=== PATIENT | male | born 1935 | race Caucasian/White ===

== ENCOUNTER 2017-01-18 16:37 | Emergency (ER) | payer MEDICARE, OTHER ==
[~2017-01-18] VITALS: Ht 175.3 cm; Wt 82.0 kg
[~2017-01-18 16:37] MED LIST: ALPR0.5T PO; ASPI-1115 PO; AZEL137S11 NAS; CARV3.123 PO; GLUC1KIT INJ; GUAI400T65 PO; INSU100C5 SQ; INSU100V12 SQ; LOSA50TA52 PO; METF10002 PO; MOME17SP7 EA NOSTRIL; NITR0.4T SL; PHEN20SP2 PO; PROP10TA10 PO; TEST200V INJ; [UNRECOGNIZED DRUG - CODE] PO; [UNRECOGNIZED DRUG - OTHER] INJ
--- OUTSIDE RECORDS SUMMARY | 2017-01-18 16:42 | XMS REPORT | Continuity of Care Document ---
Author Author [facility] Organization [facility] Address Unknown Phone Unavailable Allergies Active Description Code Type Severity Reaction Onset Reported/Identified Relationship to Patient Clinical Status Yes PCN Drug Allergy N/A N/A Yes SULFA Drug Allergy N/A N/A Yes penicillin NKMA N/A [id number] 02/23/2014 Yes penicillin NKMA N/A [id number] 02/23/2014 Yes Thorazine Spansule NKMA N/A [id number] 02/27/2014 Yes sulfamethoxazole NKMA N/A N/A 02/27/2014 Yes Thorazine Spansule NKMA N/A [id number] 02/27/2014 Yes sulfamethoxazole NKMA N/A [id number] 01/27/2015 Yes sulfamethoxazole NKMA N/A [id number] 01/27/2015 Yes Bactroban NKMA Severe rash 03/08/2015 Yes Bactroban NKMA Severe rash 03/08/2015 Yes Glutens [id number] N/A N/A 10/12/2015 Yes Glutens egg- containing compound N/A N/A 10/12/2015 Medications Medication Packaging Start Date Stop Date Route Dosage Sig [id number] 05/09/2011 ORAL daily [id number] 06/23/2011 ORAL at bedtime [id number] 01/17/2012 ORAL twice daily [id number] 04/08/2012 ORAL weekly [id number] 10/08/2012 ORAL daily [id number] 10/07/2013 ORAL twice daily [id number] 10/16/2013 ORAL four times daily testosterone(Depo-Testosterone) 02/23/2014 11/09/2015 IntraMuscular 1 mL 1 mL, IntraMuscular, q2wk digoxin(Lanoxin 250 mcg (0.25 mg) oral tablet) 1 tabs 02/23/2014 02/08/2015 Oral 250 mcg 1 tabs, Oral, Daily insulin glulisine(Apidra) 02/23/2014 11/29/2015 See Instructions, 5 units with breakfast, 5 units with lunch and 6-13 with dinner SubCutaneous, 0 Refill(s) chlorpheniramine(chlorpheniramine) 02/23/2014 Oral 4 mg 4 mg , Oral, as needed not to exceed 6 doses/day mometasone nasal(Nasonex) 2 sprays 02/23/2014 02/09/2015 Nasal 2 sprays, Nasal, qAM propranolol(propranolol 10 mg oral tablet) 1 tabs 02/23/2014 Oral 10 mg 10 mg=1 tabs, Oral, BID, 0 Refill(s) calcium citrate(calcium citrate) 02/23/2014 05/24/2016 Oral Voided bismuth subsalicylate(Kaopectate) 02/23/2014 12/25/2014 Oral mg mg, Oral, QID, as needed nitroglycerin(Nitrostat 0.4 mg sublingual tablet) 1 tabs 02/23/2014 02/10/2016 SubLingual 0.4 mg 1 tabs, SubLingual, q5min, 100 tabs, PRN: as needed for chest pain glucose(glucose) 02/23/2014 Oral 4 g 4 g, Oral, as needed insulin detemir(Levemir 100 units/mL subcutaneous solution ) 07/21/2014 12/16/2015 See Instructions, 15 units SubCutaneous BID, 10 mL, 11 Refill(s) azelastine nasal(Astelin 137 mcg/inh nasal spray) 2 sprays 10/01/2014 10/15/2015 Nasal 2 sprays, Nasal, BID, 1 Each [id number] 10/05/2014 ORAL twice each day lutein(lutein) 12/25/2014 12/25/2014 Oral Oral, Daily chlorpheniramine(chlorpheniramine 4 mg oral tablet) 1 tabs 12/25/2014 01/01/2015 Oral 4 mg 1 tabs, Oral, QID, 40 tabs, PRN: as needed for allergy symptoms azithromycin(Zithromax Z-Wong 250 mg oral tablet) 01/04/2015 02/09/2015 See Instructions, as directed on package labeling, 6 tabs [id number] 01/18/2015 ORAL four times daily Sodium Chloride 0.9%(Sodium Chloride 0.9% 1,000 mL) 1,000 mL 01/27/2015 01/27/2015 IV 75 mL/hr, IV phenol topical(Chloraseptic Esposito 1.4% topical spray) sprays 01/27/2015 Oral sprays, Oral, As Indicated, PRN: as needed for sore throat, 0 Refill(s) ciprofloxacin(Cipro 500 mg oral tablet) 1 tabs 02/09/201502/19 Oral 500 mg 500 mg=1 tabs, Oral, q12hr, for 10 days, for sinusitis. take first dose tomorrow nmorning, February 10, 2015., 20 tabs, 0 Refill(s) ondansetron(Zofran ODT 4 mg oral tablet, disintegrating) 1 tabs 02/09/2015 02/19/2015 Oral 4 mg as needed for nausea/vomiting, allow tablet to dissolve on tongue, # 10 tabs, 1 Refill(s) 4 mg=1 tabs, Oral, q6hr, allow tablet to dissolve on tongue, PRN: Nausea or Vomiting as needed for nausea/ vomiting, 10 tabs, 1 Refill(s) oxyCODONE-acetaminophen(Percocet 5/325 oral tablet) 1 tabs 02/09/2015 02/19/2015 Oral 1 tabs, Oral, q6hr, PRN pain. No driving., 30 tabs, 0 Refill(s) mupirocin topical(Bactroban 2% topical ointment) 02/09/2015 03/08/2015 See Instructions, 1 kojo Topical qid., 22 g, 2 Refill(s) lisinopril(lisinopril 10 mg oral tablet) 1 tabs 03/08/2015 Oral 10 mg 10 mg=1 tabs, Oral, Daily, 30 tabs, 0 Refill(s) mometasone nasal(Nasonex 50 mcg/inh nasal spray) 2 sprays 03/08/2015 Nasal 2 sprays, Nasal, Daily, 0 Refill(s) ALPRAZolam(Xanax 0.5 mg oral tablet) 1 tabs 03/08/2015 Oral 0.5 mg 0.5 mg=1 tabs, Oral, TID, PRN: as needed for anxiety, 0 Refill(s) losartan(losartan 50 mg oral tablet) 1 tabs 04/16/20152015 Oral 50 mg Voided [id number] 04/30/2015 ORAL daily dicyclomine(Bentyl 10 mg oral capsule) 1 caps 10/11/20152015 Oral 10 mg Voided omeprazole(omeprazole 40 mg oral delayed release capsule) 1 caps 10/11/2015 02/10/2016 Oral 40 mg 40 mg=1 caps, Oral, Daily, 0 Refill(s) guaiFENesin(Mucinex) 10/11/2015 02/10/2016 Oral 600 mg 600 mg, Oral, q12hr, 0 Refill(s) pantoprazole(pantoprazole 40 mg oral delayed release tablet ) 1 tabs 10/11/2015 10/15/2015 Oral 40 mg 40 mg=1 tabs, Oral, Daily, 0 Refill(s) alendronate-cholecalciferol(Fosamax Plus D) 10/11/20152015 Voided Lactated Ringers Injection(Lactated Ringers Injection 1, 000 mL) 1,000 mL 201510/11/2015 IV 10 mL/hr, IV midazolam(Versed) 0.5 mL 10/11/2015 10/11/2015 IV Push 0.5 mg 0.5 mg=0.5 mL, IV Push, Once ondansetron(Zofran) 2 mL 10/11/2015 10/11/2015 IV Push 4 mg 4 mg= 2 mL, IV Push, Once, PRN: Nausea or Vomiting HYDROmorphone(Dilaudid) 0.5 mL 10/11/2015 10/11/2015 IV Push 0.5 mg 0.5 mg=0.5 mL, IV Push, q5min, PRN: Pain metoclopramide(Reglan) 2 mL 10/11/2015 10/15/2015 IV Push 10 mg 10 mg=2 mL, IV Push, q6hr, PRN: Nausea or Vomiting Lactated Ringers Injection(Lactated Ringers Injection 1, 000 mL) 1,000 mL 201510/13/2015 IV 100 mL/hr, IV ondansetron(Zofran) 2 mL 10/11/2015 10/15/2015 IV 4 mg 4 mg=2 mL, IV, q6hr, PRN: Nausea or Vomiting HYDROmorphone(HYDROmorphone EXTRACTIVE METALLURGIST 30 mg) 30 mL 10/11/20152015 IV 30 mg EXTRACTIVE METALLURGIST, IV, Stop: 12/10/15 19:49:00 CDT enoxaparin(Lovenox) 0.4 mL 10/11/2015 10/15/2015 SubCutaneous 40 mg 40 mg=0.4 mL, SubCutaneous, Daily HYDROmorphone(Dilaudid) 10/11/2015 10/15/2015 IV Push 0.5-1mg , IV Push, q2hr, PRN: Pain Severe (7-10) famotidine(Pepcid) 2 mL 10/11/2015 10/12/2015 IV 20 mg 20 mg=2 mL , IV, BID promethazine(Phenergan) 1 supp 10/11/2015 10/15/2015 Rectal 25 mg 25 mg=1 supp, Rectal, q6hr, PRN: Nausea or Vomiting acetaminophen(acetaminophen) 1 supp 10/11/2015 10/15/2015 Rectal 650 mg 650 mg=1 supp, Rectal, q6hr, PRN: Pain Mild (1-3) pneumococcal 23-polyvalent vaccine(pneumococcal 23- polyvalent vaccine) 0.5 mL 10/12/2015 10/12/2015 IntraMuscular 0.5 mL, IntraMuscular , As Indicated HYDROcodone-acetaminophen(Lortab Elixir 5 mg-216 mg/10 mL oral elixir range dose) 20 mL 10/12/2015 10/13/2015 Oral 20 mL, Oral, q4hr, PRN: Pain Moderate (4-6) ALPRAZolam(Xanax) 1 tabs 10/12/2015 10/15/2015 Oral 0.5 mg 0.5 mg=1 tabs, Oral, TID, PRN: Anxiety aspirin(aspirin) 4 tabs 10/12/2015 10/15/2015 Oral 324 mg 324 mg=4 tabs, Oral, Daily losartan(losartan) 1 tabs 10/12/2015 10/15/2015 Oral 50 mg 50 mg= 1 tabs, Oral, Daily pantoprazole(Protonix) 1 tabs 10/12/2015 10/15/2015 Oral 40 mg 40 mg=1 tabs, Oral, Daily insulin detemir(Levemir) 0.12 mL 10/12/2015 10/15/2015 SubCutaneous 12 units 12 units=0.12 mL, SubCutaneous, BID adenosine(adenosine) 4 mL 10/12/2015 10/12/2015 IV Push 12 mg 12 mg=4 mL, IV Push, Once diltiazem(Cardizem) 3 mL 10/12/2015 10/12/2015 IV Push 15 mg 15 mg =3 mL, IV Push, Once docusate(Colace) 1 caps 10/13/2015 10/15/2015 Oral 100 mg 100 mg=1 caps, Oral, BID polyethylene glycol 3350(MiraLax) 1 packets 10/13/20152015 Oral 17 g 17 g=1 packets, Oral, Daily HYDROcodone-acetaminophen(HYDROcodone-acetaminophen 5 mg- 325 mg oral tablet) 1 tabs 10/13/2015 10/13/2015 Oral 1 tabs, Oral, Once, PRN: Pain Moderate (4-6) HYDROcodone-acetaminophen(HYDROcodone-acetaminophen 5 mg- 216 mg/10 mL oral liquid range dose) 20 mL 10/13/2015 10/14/2015 Oral 20 mL, Oral, q4hr, PRN: Pain Moderate (4-6) insulin aspart(NovoLOG) 0.16 mL 10/14/2015 10/15/2015 SubCutaneous 16 units 16 units=0.16 mL, SubCutaneous, TIDWM oxyCODONE(Roxicodone) 10/14/2015 10/15/2015 Oral 5-10mg, Oral , q4hr, PRN: Pain Severe (7-10) acetaminophen(acetaminophen) 20.3 mL 10/14/2015 10/15/2015 Oral 650 mg 650 mg=20.3 mL, Oral, q6hr, PRN: Pain Mild (1-3) metoprolol(metoprolol tartrate 25 mg oral tablet) 1 tabs 10/14/2015 10/14/2015 Oral 25 mg 25 mg=1 tabs, Oral, BID fluticasone nasal(fluticasone 50 mcg/inh nasal spray) 2 sprays 10/14/2015 10/15/2015 Nasal 100 mcg 100 mcg=2 sprays, Nasal, Daily polyethylene glycol 3350(MiraLax) 1 packets 10/15/20152015 Oral 17 g 17 g=1 packets, Oral, Daily, 0 Refill(s) acetaminophen(acetaminophen 650 mg oral granule, effervescent) 201505/24/2016 Oral Voided oxyCODONE(Roxicodone) 10/15/2015 12/07/2015 Oral 5-10mg, Oral , q4hr, PRN: Pain Severe (7-10), 0 Refill(s) docusate(Colace 100 mg oral capsule) 1 caps 10/15/20152015 Oral 100 mg Voided magnesium sulfate(magnesium sulfate) 100 mL 10/15/20152015 IV Piggyback 1 g 1 g=100 mL, 100 mL/hr, IV Piggyback, Once magnesium oxide(magnesium oxide) 1 tabs 10/15/2015 10/15/2015 Oral 400 mg 400 mg=1 tabs, Oral, Once chlorpheniramine(chlorpheniramine 4 mg oral tablet) 1 tabs 11/09/2015 02/10/2016 Oral 4 mg 4 mg=1 tabs, Oral, QID, PRN: as needed for allergy symptoms, 40 tabs, 0 Refill(s) aspirin(aspirin 325 mg oral tablet) 1 tabs 11/09/2015 Oral 325 mg 325 mg=1 tabs, Oral, Daily, 0 Refill(s) dicyclomine(Bentyl) 12/07/2015 05/24/2016 mg Voided metFORMIN(metFORMIN 1000 mg oral tablet, extended release) 1 tabs 12/07/2015 Oral 1,000 mg 1,000 mg=1 tabs, Oral, BID, 120 tabs, 0 Refill(s) carvedilol(carvedilol) 12/07/2015 Oral 3.125 mg 3.125 mg, Oral, BID, 0 Refill(s) guaiFENesin(guaiFENesin 400 mg oral tablet) 1 tabs 02/10/2016 02/09/2017 Oral 400 mg 400 mg=1 tabs, Oral, q4hr, PRN: as needed for congestion, 30 tabs, 0 Refill(s) cetirizine(ZyrTEC 10 mg oral tablet) 1 tabs 02/10/20162015 Oral 10 mg Voided losartan(losartan 25 mg oral tablet) 1 tabs 05/24/20162016 Oral 25 mg Voided testosterone(Depo-Testosterone) 05/24/2016 See Instructions, IntraMuscular q4wk, 0 Refill(s) insulin glulisine(Apidra SoloStar Pen 100 units/mL subcutaneous solution) 05/24/2016 09/07/2016 See Instructions, 6 units with breakfast, 5 units with lunch and 7 with dinner SubCutaneous, 30 mL, 11 Refill( s) insulin detemir(Levemir FlexTouch 100 units/mL subcutaneous solution) 05/24/2016 09/07/2016 See Instructions, INJECT 15 UNITS IN THE A.M., AND 17 UNITS IN THE P.M. SUB-Q DAILY, 30 mL, 11 Refill(s) Lactated Ringers Injection(Lactated Ringers 1,000 mL) 1,000 mL 06/26/2016 06/26/2016 IV 10 mL/hr, IV losartan(losartan 100 mg oral tablet) 1 tabs 09/29/2016 Oral 100 mg 100 mg=1 tabs, Oral, Daily, 30 tabs, 0 Refill(s) Problems Date Dx Coded Attending Type Code Diagnosis Diagnosed By 10/14/2015 Yoselin Ward Final K56.2 Volvulus 10/14/2015 Yoselin Ward Reason R13.10 Dysphagia, unspecified 10/19/2015 Moy Shah MD Final E11.9 Type 2 diabetes mellitus without complications 10/19/2015 Moy Shah MD Final I10 Essential (primary) hypertension 10/19/2015 Moy Shah MD Final 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 10/19/2015 Moy Shah MD Final I65.22 Occlusion and stenosis of left carotid artery 10/19/2015 Moy hSah MD Final K44.9 Diaphragmatic hernia without obstruction or gangrene 10/19/2015 Moy Shah MD Reason R47.01 Aphasia 10/19/2015 Moy Shah MD Final Z01.810 Encounter for preprocedural cardiovascular examination 10/19/2015 Moy Shah MD Final Z95.1 Presence of aortocoronary bypass graft 11/01/2015 Moy Shah MD Final E11.9 Type 2 diabetes mellitus without complications 11/01/2015 Moy Shah MD Final E83.42 Hypomagnesemia 11/01/2015 Moy Shah MD Final F41.0 Panic disorder [episodic paroxysmal anxiety] without agoraphobia 11/01/2015 Moy Shah MD Final G25.0 Essential tremor 11/01/2015 Moy Shah MD Final I10 Essential (primary) hypertension 11/01/2015 Moy Shah MD Final 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 11/01/2015 Moy Shah MD Final I34.0 Nonrheumatic mitral (valve) insufficiency 11/01/2015 Moy Shah MD Final I47.1 Supraventricular tachycardia 11/01/2015 Moy Shah MD Final K31.89 Other diseases of stomach and duodenum 11/01/2015 Moy Shah MD Admitting K44.9 Diaphragmatic hernia without obstruction or gangrene 11/01/2015 Moy Shah MD Final Z23 Encounter for immunization 11/01/2015 Moy Shah MD Final Z95.1 Presence of aortocoronary bypass graft 11/01/2015 Moy Shah MD Final K44.9 Diaphragmatic hernia without obstruction or gangrene 07/02/2016 Yoselin Ward Final D75.1 Secondary polycythemia 07/02/2016 Yoselin Ward Final E11.42 Type 2 diabetes mellitus with diabetic polyneuropathy 07/02/2016 Yoselin Ward Final E78.5 Hyperlipidemia, unspecified 07/02/2016 Yoselin Ward Final F32.9 Major depressive disorder, single episode, unspecified 07/02/2016 Yoselin Ward Final F41.9 Anxiety disorder, unspecified 07/02/2016 Yoselin Ward Final G25.0 Essential tremor 07/02/2016 Yoselin Ward Final I10 Essential (primary) hypertension 07/02/2016 Yoselin Ward Final 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 07/02/2016 Yoselin Ward Final I25.2 Old myocardial infarction 07/02/2016 Yoselin Ward Final I48.91 Unspecified atrial fibrillation 07/02/2016 Yoselin Ward Final J98.6 Disorders of diaphragm 07/02/2016 Yoselin Ward Final K21.9 Gastro-esophageal reflux disease without esophagitis 07/02/2016 Yoselin Ward Final K22.8 Other specified diseases of esophagus 07/02/2016 Yoselin Ward Final K29.00 Acute gastritis without bleeding 07/02/2016 Yoselin Ward Final K90.0 Celiac disease 07/02/2016 Yoselin Ward Final M19.90 Unspecified osteoarthritis, unspecified site 07/02/2016 Yoselin Ward Final N40.0 Benign prostatic hyperplasia without lower urinary tract symptoms 07/02/2016 Yoselin Ward Reason R13.10 Dysphagia, unspecified 07/02/2016 Yoselin Ward Final 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 Visit Date/Time Discharge Status Pt. Type Provider Facility Loc./Unit Complaint [id number] 06/26/2016 07:42:00 2015 11:25:00 DIS Outpatient Yoselin Ward [facility] SPS GERD, dysphagia, Celiac disease [id number] 10/11/2015 12:08:00 2015 14:24:00 DIS Inpatient Moy Shah MD [facility] [id number] Diaphragmatic hernia [id number] 09/24/2015 13:05:00 2015 23:59:00 DIS Outpatient Yoselin Ward [facility] on [facility] Diag Rad DYSPHAGIA [id number] 09/30/2016 05:16:29 Document Registration [id number] 06/27/2016 05:18:12 Document Registration [id number] 05/25/2016 05:17:42 Document Registration [id number] 02/11/2016 05:16:43 Document Registration [id number] 12/08/2015 05:17:46 Document Registration [id number] 11/10/2015 05:15:50 Document Registration [id number] 10/16/2015 05:16:40 Document Registration [id number] 10/15/2015 05:16:05 Document Registration [id number] 10/14/2015 05:16:42 Document Registration [id number] 10/13/2015 05:17:35 Document Registration [id number] 10/12/2015 05:17:12 Document Registration [id number] 10/07/2015 09:15:00 ACT Outpatient Moy Shah MD [facility] on [facility] Non-Invas r42 [id number] 06/23/2015 13:28:05 Document Registration [id number] 06/23/2015 12:58:31 Document Registration [id number] 06/23/2015 12:36:28 Document Registration [id number] 06/23/2015 12:29:14 Document Registration [id number] 06/23/2015 12:22:02 Document Registration [id number] 06/23/2015 12:08:10 Document Registration [id number] 06/23/2015 12:01:32 Document Registration [id number] 06/23/2015 11:02:19 Document Registration [id number] 06/23/2015 10:22:00 Document Registration [id number] 06/23/2015 09:04:20 Document Registration
[2017-01-18 16:43] VITALS: TEMP 98.1; Ht 175.3 cm; Wt 82.0 kg
--- OUTSIDE RECORDS SUMMARY | 2017-01-18 16:43 | XMS REPORT | Referral Summary ---
Author Author [facility] Organization [facility], Melissa Address Unknown Phone Unavailable Care Team Providers Care Social Media Developer Name Role Phone Mike Mendoza Primary Care Physician [phone] Encounter VC Date(s): 05/24/16 - 05/24/16 [facility] [address] [place] [address] [facility] Discharge Diagnosis: Diabetic neuropathy Discharge Diagnosis: Type 2 diabetes mellitus, controlled Discharge Diagnosis: Hypertension Discharge Diagnosis: Long-term insulin use Discharge Disposition: 01-Home or Self Care Attending Physician: Melida Millan APRN Admitting Physician: Melida Millan APRN Vital Signs Most recent to 1 oldest [Reference Range]: Peripheral Pulse 84 bpm Rate [60-100 bpm] (05/24/16 1:29 PM) Blood Pressure 120/80 mmHg [90-140/60-90 mmHg] (05/24/16 1:29 PM) Problem List Condition Effective Dates Status Health Status Informant Acute Active pain(Confirmed) At risk for activity Active intolerance(Confirme d)1 At risk of pressure Active sore(Confirmed) Celiac Active disease(Confirmed) Celiac Active disease(Confirmed) Depression(Confirmed Active patient ) Diabetes(Confirmed) Active Peripheral Active neuropathy(Confirmed ) Dyslipidemia(Confirm Active patient ed) Breath Active shortness(Confirmed) Polycythemia(Confirm Active patient ed) Essential Active tremor(Confirmed) Hiatal Active patient hernia(Confirmed) Hypertension(Confirm Active ed) Impaired skin Active integrity(Confirmed) 2 Osteoporosis(Confirm Active patient ed) Diaphragmatic Active paralysis(Confirmed) Diabetic Active neuropathy(Confirmed ) Tobacco Active patient user(Confirmed) Type 2 diabetes Active mellitus, controlled(Confirmed ) Uncontrolled type 2 Active diabetes mellitus(Confirmed) 1Problem added automatically by system based on initiation of At Risk for Activity Intolerance Plan of Care 2Problem added automatically by system based on initiation of Impaired Skin Integrity Plan of Care Allergies, Adverse Reactions, Alerts Substance Reaction Severity Status Bactroban rash Severe Active Glutens1 Active penicillin Rash Active sulfamethoxazole Rash Active Thorazine Spansule Hives Active 1Celiac Disease Medications Apidra SoloStar Pen 100 units/mL subcutaneous solution See Instructions, 6 units with breakfast, 5 units with lunch and 6 with dinner SubCutaneous, # 30 mL, 11 Refill(s), [facility]: [facility], 6 units with breakfast, 5 units with lunch and 6 with dinner SubCutaneous Start Date: 05/24/16 Status: Ordered aspirin 325 mg oral tablet 325 mg 1 tabs, Oral, Daily, 0 Refill(s) Start Date: 11/09/15 Status: Ordered carvedilol Oral, 0 Refill(s) Start Date: 12/07/15 Status: Ordered Chloraseptic [place] 1.4% topical spray sprays, Oral, As Indicated, as needed for sore throat, 0 Refill(s) Start Date: 01/27/15 Status: Ordered chlorpheniramine 4 mg, Oral, as needed not to exceed 6 doses/day, 0 Refill(s) Start Date: 02/23/14 Status: Ordered Depo-Testosterone See Instructions, IntraMuscular q4wk, 0 Refill(s) Start Date: 05/24/16 Status: Ordered glucose 4 g, Oral, as needed, 0 Refill(s) Start Date: 02/23/14 Status: Ordered guaiFENesin 400 mg oral tablet 400 mg 1 tabs, Oral, q4hr, as needed for congestion, # 30 tabs, 0 Refill(s) Start Date: 02/10/16 Stop Date: 02/09/17 Status: Ordered Insulin [place] (DME) DME Item Insulin pen needles 8mm use to inject insulin 5 times daily, See Instructions, # 3 boxes, 11 Refill(s), [facility]: [facility], Insulin pen needles 8mm; use to inject insulin 5 times daily, Supply Start Date: 05/24/16 Status: Ordered Levemir FlexTouch 100 units/mL subcutaneous solution See Instructions, INJECT 15 UNITS TWICE A DAY., # 30 mL, 11 Refill(s), CASANDRA, [facility]: [facility], INJECT 15 UNITS TWICE A DAY. Start Date: 05/24/16 Status: Ordered losartan 25 mg oral tablet 25 mg 1 tabs, Oral, Daily, 0 Refill(s) Start Date: 05/24/16 Status: Ordered metFORMIN 1000 mg oral tablet, extended release 1,000 mg 1 tabs, Oral, BID, # 120 tabs, 0 Refill(s) Start Date: 12/07/15 Status: Ordered Misc Medication See Instructions, Rubralam pc INj B12 1000mcg every 2nd week, 0 Refill(s) Start Date: 02/27/14 Status: Ordered Nasonex 50 mcg/inh nasal spray 2 sprays, Nasal, Daily, 0 Refill(s) Start Date: 03/08/15 Status: Ordered propranolol 10 mg oral tablet 10 mg 1 tabs, Oral, BID, 0 Refill(s) Start Date: 02/23/14 Status: Ordered Xanax 0.5 mg oral tablet 0.5 mg 1 tabs, Oral, TID, as needed for anxiety, 0 Refill(s) Start Date: 03/08/15 Status: Ordered Results No data available for this section Immunizations Vaccine Date Refusal Reason pneumococcal 23-polyvalent vaccine 10/12/15 Procedures Procedure Date Related Diagnosis Body Site Repair Hernia Hiatal Laparoscopic1 10/11/15 Nasal/sinus endoscopy, surgical with frontal 02/09/15 sinus exploration, with or without removal of tissue from frontal sinus Nasal/sinus endoscopy, surgical, with 02/09/15 maxillary antrostomy; with removal of tissue from maxillary sinus Nasal/sinus endoscopy, surgical; with 02/09/15 ethmoidectomy, total (anterior and posterior) CABG x 3 - Coronary artery bypass grafts x 3 History of placement of stent for coronary artery disease neck fusion 1auto-populated from documented surgical case Social History Social History Type Response Smoking Status Former smoker; Type: Cigarettes; Tobacco use per day: More than 1 pack; Number of years: 25; Total pack years: 100 Assessment and Plan Extracted from: Title: Office Visit Note Author: Melida Millan APRN Date: 05/24/16 Assessment/Plan 1.Type 2 diabetes mellitus, controlled 1. check blood sugars fasting and 2 hours after meals 3-7 days per week 2. continue current doses of insulin and metformin 3. rotate injection sites 4. monitor diet and exercise 5. monitor feet daily 6. send weekly blood sugars to office I discussed the patient with the preceptor. Ordered: Hemoglobin A1c Office Visit Level 3 Est 53251 Return to Clinic 2.Diabetic neuropathy Ordered: Hemoglobin A1c Office Visit Level 3 Est [id number] Return to Clinic 3.Hypertension Ordered: Hemoglobin A1c Office Visit Level 3 Est [id number] Return to Clinic 4.Long-term insulin use Ordered: Hemoglobin A1c Office Visit Level 3 Est [id number] Return to Clinic Extracted from: Title: Ambulatory Patient Education Author: Melida Millan APRN Date: Obstetrics and Gynecology Diabetes and Sick Day Management Blood sugar (glucose) can be more difficult to control when you are sick. Colds , fever, flu, nausea, vomiting, and diarrhea are all examples of common illnesses that can cause problems for people with diabetes. Loss of body fluids (dehydration) from fever, vomiting, diarrhea, infection, and the stress of a sickness can all cause blood glucose levels to increase. Because of this, it is very important to take your diabetes medicines and to eat some form of carbohydrate food when you are sick. Liquid or soft foods are often tolerated, and they help to replace fluids. HOME CARE INSTRUCTIONS These main guidelines are intended for managing a short-term (24 hours or less) sickness: Take your usual dose of insulin or oral diabetes medicine. An exception would be if you take any form of metformin. If you cannot eat or drink, you can become dehydrated and should not take this medicine. Continue to take your insulin even if you are unable to eat solid foods or are vomiting. Your insulin dose may stay the same, or it may need to be increased when you are sick. You will need to test your blood glucose more often, generally every 2 4 hours. If you have type 1 diabetes, test your urine for ketones every 4 hours. If you have type 2 diabetes, test your urine for ketones as directed by your health care provider. Eat some form of food that contains carbohydrates. The carbohydrates can be in solid or liquid form. You should eat 4550 g of carbohydrates every 3 4 hours. Replace fluids if you have a fever, vomit, or have diarrhea. Ask your health care provider for specific rehydration instructions. Watch carefully for the signs of ketoacidosis if you have type 1 diabetes. Call your health care provider if any of the following symptoms are present, especially in children: Moderate to large ketones in the urine along with a high blood glucose level. Severe nausea. Vomiting. Diarrhea. Abdominal pain. Rapid breathing. Drink extra liquids that do not contain sugar such as water. Be careful with [id number] medicines. Read the labels. They may contain sugar or types of sugars that can increase your blood glucose level. Food Choices for Illness All of the food choices below contain about 15 g of carbohydrates. Plan ahead and keep some of these foods around. to cup carbonated beverage containing sugar. Carbonated beverages will usually be better tolerated if they are opened and left at room temperature for a few minutes. of a twin frozen ice pop. cup regular gelatin. cup juice. cup ice cream or frozen yogurt. cup cooked cereal. cup sherbet. 1 cup clear broth or soup. 1 cup cream soup. cup regular custard. cup regular pudding. 1 cup sports drink. 1 cup plain yogurt. 1 slice toast. 6 squares saltine crackers. 5 vanilla wafers. SEEK MEDICAL CARE IF: You are unable to drink fluids, even small amounts. You have nausea and vomiting for more than 6 hours. You have diarrhea for more than 6 hours. Your blood glucose level is more than 240 mg/dL, even with additional insulin. There is a change in mental status. You develop an additional serious sickness. You have been sick for 2 days and are not getting better. You have a fever. SEEK IMMEDIATE MEDICAL CARE IF: You have difficulty breathing. You have moderate to large ketone levels. MAKE SURE YOU: Understand these instructions. Will watch your condition. Will get help right away if you are not doing well or get worse. This information is not intended to replace advice given to you by your health care provider. Make sure you discuss any questions you have with your health care provider. Document Released: 08/22/2004 Document Revised: 09/10/2015 Document Reviewed: ExitCare Patient Information 2016 [employer], [employer]. No follow up information was provided. Referrals to Other Providers Referred by: Melida Millan APRN
--- OUTSIDE RECORDS SUMMARY | 2017-01-18 16:43 | XMS REPORT | Continuity of Care Document ---
Author Author [facility] Organization [facility] Address Unknown Phone Unavailable Support Name Relationship Address Phone JANUARY, MADELEINE Mckeon DO Caregiver [address] [place] [address] Unavailable EMILY VERA Caregiver [address] [place] [address] Unavailable DIDIERSYLVESTERUSAMA Next Of Kin [address], [place] [address] Insurance Providers Guarantor Jonh Velásquez Address [address] [place] [address] Email DENIED/NO TO PT PORT Payer [employer] Medicare Supplement Policy Number [id number] Subscriber's Name Jonh Velásquez Relationship 18 Self Group Number [id number] Effective Date 14 Payer Medicare Policy Number [id number] Subscriber's Name Jonh Velásquez Relationship 18 Self Effective Date 02 Chief Complaint and Reason for Visit Chief Complaint Laceration Reason for Visit [id number] Problems Active Problems Medical Problem Onset Date Status Chest pain, rule out acute myocardial infarction Unknown Acute Coronary arteriosclerosis after coronary artery bypass grafting Unknown Chronic Coronary arteriosclerosis after percutaneous transluminal coronary angioplasty (PTCA) Unknown Chronic Drooling Unknown Acute Hypoglycemia Unknown Acute Sinusitis Unknown Acute Sinusitis Unknown Acute Speech abnormality Unknown Acute TIA (transient ischemic attack) Unknown Acute Surgical Problem Onset Date Status S/P coronary artery balloon dilation Unknown Acute Past Problems Medical Problem Onset Date Dizziness Unknown Finger laceration Unknown Headache Unknown Medications Current Home Medications Medication Dose Units Route Directions Days Qty Instructions Start Date Alprazolam (Xanax) 0.5 Mg Tablet 0.5 Mg Oral Three Times A Day as needed for Anxiety 08/31/14 Aspirin (Ecotrin) 325 Mg Tablet. 325 Mg Oral Daily 12/28/15 Azelastine Hcl 137 Mcg/0.137 Ml [place].pump 2 [place] Intranasal Twice A Day as needed for Prn Orders BID PRN 12/28/15 Carvedilol 3.125 Mg Tablet 3.125 Mg Oral Twice Daily With Meals 11/22/15 Chlorpheniramine Maleate (Chlor-Tablet) 4 Mg Tablet 4 Mg Oral As Needed for Allery Symptoms 02/17/11 Glucagon,Human Recombinant (Glucagon Emergency Kit) 1 Mg/Kit Syringe 1 Dose Injection As Needed 09/17/15 Guaifenesin 400 Mg Tablet 400 Mg Oral Bedtime as needed for Allery Symptoms 09/17/15 Insulin Detemir (Levemir) 100 Unit/Ml Inj 15 Unit Sub-Q Twice A Day 08/31/14 Insulin Glulisine (Apidra) 100 U/Ml Cartridge 5-8 Unit Sub-Q Three Times Daily With Meals 6 units before breakfast; 5 units before lunch (0 units if going to cardiac rehab); 6 units before supper 05/04/10 Losartan Potassium 50 Mg Tablet 25 Mg Oral Daily 01/24/16 Metformin Hcl 1,000 Mg Tablet 1,000 Mg Oral Twice A Day 12/28/15 Mometasone Furoate (Nasonex) 17 Gm [place] 2 [place] Each Nostril Bedtime 02/17/11 Nitroglycerin (Nitrostat) 0.4 Mg Tablet 0.4 Mg Sublingual Every 5 Minutes as needed for Chest Tightness 07/11/15 Phenol (Chloraseptic) 20 Ml [place] 1 [place] Oral As Needed 09/17/15 Propranolol Hcl 10 Mg Tablet 10 Mg Oral Twice A Day 12/31/15 Rubralam 1,000 Mcg Injection Q2w 05/26/16 Testosterone Cypionate (Depo-Testosterone) 200 Mg/Ml Vial 1 Ml Injection Q4w 04/14/16 Past Home Medications Medication Directions Ordered Status Aspirin (Ecotrin) 325 Mg Tablet.dr, 325 Mg Oral Daily 05/04/10 Discontinued Azithromycin 250 Mg Tablet, 2 Tab Oral Daily 08/31/14 Discontinued Azithromycin 250 Mg Tablet, 2 Tab Oral Daily 08/31/14 Discontinued Ca Cmb No.1/Vit D3/B-6/Fa/B12 (Vitamin D3 1,000 Unit Tablet) 1 Each Tablet, 20302 Unit Oral Daily 08/31/14 Discontinued Ciprofloxacin Hcl (Cipro) 250 Mg Tablet, 250 Mg Oral Bedtime 08/31/14 Discontinued Digoxin (Lanoxin) 250 Mcg Tablet, 250 Mcg Oral Daily 05/04/10 Discontinued Escitalopram Oxalate (Lexapro) 5 Mg Tablet, 5 Mg Oral Daily 05/04/10 Discontinued Guaifenesin (Mucinex) 600 Mg Tablet.sa, 600 Mg Oral Twice A Day 11/18/10 Discontinued Lactobacillus Acidophilus (Acidophilus Probiotic) 1 Mg Tablet, 1 Tab Oral Daily 08/31/14 Discontinued Melatonin/Pyridoxine (Melatonin 3 Mg Tablet) 1 Tab Tablet, 1 Tab Oral Bedtime 02/17/11 Discontinued Metformin Hcl 1,000 Mg Tablet, 1000 Tab Oral Twice Daily With Meals 07/11/15 Discontinued Metformin Hcl 500 Mg Tablet, 1000 Mg Oral Twice A Day 05/04/10 Discontinued Metoprolol Succinate 50 Mg Tab.sr.24h, 50 Mg Oral Daily 05/04/10 Discontinued Mometasone Furoate (Nasonex) 17 Gm [place], 17 Gm Nasal As Needed 05/04/10 Discontinued Prednisone 20 Mg Tablet, 60 Mg Oral Give With Breakfast 08/31/14 Discontinued Propranolol Hcl 10 Mg Tablet, 10 Mg Oral Four Times Daily 07/12/15 Discontinued Social History Social History Problem Response Recorded Date/Time Onset Date Status Hx Substance Use No 05/26/2016 2:30pm Not Applicable Not Applicable Hx Alcohol Use No 05/26/2016 2:30pm Not Applicable Not Applicable Has the pt used tobacco in the last 12 months No 11/22/2015 11:04am Not Applicable Not Applicable Tobacco Usage none 09/01/2014 7:23am Not Applicable Not Applicable Query Response Start Date Stop Date Smoking Status Unknown if ever smoked Hospital Discharge Instructions No hospital discharge instructions. Plan of Care Discharge Date 05/26/16 2:55pm Disposition 01 DISCHARGED HOME, SELF-CARE Condition at Discharge Stable Instructions/Education Provided DI for Laceration Repair -- Finger Prescriptions See Medication Section Referrals EMILY VERA Address: [address] [address] Additional Instructions/Education Have sutures removed in the next 10-14 days with your primary care provider. Wash daily with soap and water. I do recommend that if you should have any further issues/concerns then please follow up with your primary care provider. Tylenol and/or Ibuprofen as needed for pain. Care Plan and Goals Physician Care Plan Problem:Finger Laceration Goal: Follow up with primary care provider Instructions: Take medications and follow care plan as discussed/written Functional Status No functional status results. Allergies, Adverse Reactions, Alerts Allergen Type Severity Reaction Status Last Updated Penicillin Allergy Severe RASH Active 05/26/16 Sulfa (Sulfonamide Antibiotics) Allergy Severe RASH Active 05/26/16 Isosorbide Allergy Unknown Active 05/26/16 Senna concentrate Allergy Unknown Active 05/26/16 Lorazepam Allergy Unknown Active 05/26/16 Primidone Allergy Unknown Active 05/26/16 Hydrocortisone Allergy Unknown Active 05/26/16 Ampicillin Allergy Unknown Active 05/26/16 Neomycin Allergy Unknown Active 05/26/16 Bacitracin Allergy Unknown Active 05/26/16 Sulfamethoxazole Allergy Severe RASH Active 05/26/16 Trimethoprim Allergy Severe RASH Active 05/26/16 Pravastatin Allergy Unknown Active 05/26/16 Amoxicillin Allergy Severe RASH Active 05/26/16 Venlafaxine Allergy Unknown Active 05/26/16 Lansoprazole Allergy Unknown Active 05/26/16 Chlorpromazine Allergy Unknown HIVES Active 05/26/16 Amitriptyline Allergy Unknown Active 05/26/16 Bupropion Allergy Unknown Active 05/26/16 Sertraline Allergy Unknown Active 05/26/16 Ceftriaxone Allergy Unknown Active 05/26/16 Polymyxin b Allergy Unknown Active 05/26/16 Pantoprazole Allergy Unknown Active 05/26/16 Escitalopram Allergy Unknown Active 05/26/16 Rosuvastatin Allergy Unknown Active 05/26/16 Immunizations Immunization Event Date Type Not Given Reason Dose Number Lot Number [employer] VIS Given Td (adult), adsorbed 05/26/16 Administered 1 [id number] [employer] 10/27/14 Query Response on File Recorded Date/Time Hx Influenza Vaccination Y 06/201511/22/15 11:04am Hx Pneumococcal Vaccination Y 2014 11/22/15 11:04am Hx Tetanus, Diptheria, Pertussis Yes 06/07/15 11:51pm Hx Influenza Vaccination Y 06/201511/22/15 11:04am Hx Tetanus Diptheria Y 05/26/2016 05/26/16 2:50pm Hx Tetanus, Diptheria, Pertussis Yes 06/07/15 11:51pm Influenza Vaccine Hx JUN 2015 05/26/16 2:30pm Tetanus Diptheria Vaccine History 05/26/16 05/26/16 2:47pm Vital Signs Acute Vital Signs Vital Response Date/Time Temperature (Fahrenheit) 98.0 deg F (96.8 - 99.1) 05/26/2016 12:55pm Temperature (Calculated Celsius) 36.58624 degrees C (36.0 - 37.3) 05/26/2016 12:55pm Pulse Rate (adult) 88 bpm (60 - 100) 05/26/2016 2:30pm Respiratory Rate 18 breaths/min (10 - 20) 05/26/2016 2:30pm O2 Sat by Pulse Oximetry 94 % (90 - 100) 05/26/2016 2:30pm Blood Pressure 143/75 mm Hg 05/26/2016 2:30pm Height (Feet) 5 feet 05/26/2016 12:55pm Height (Inches) 10.00 inches 05/26/2016 12:55pm Weight (Kilograms) 85.000 kg 05/26/2016 12:55pm Body Mass Index (BMI) 26.0 05/26/2016 12:55pm Results Laboratory Results Test Name Result Units Flags Reference Collection Date/Time Result Date/ Time Comments Glucometer 68 mg/dL L 75-110 01/10/2016 3:19pm 02/09/2016 6:55am White Blood Count 11.0 T/MM3 4.5-11.0 04/14/2016 7:27pm 04/14/2016 7: 39pm Red Blood Count 5.36 M/MM3 4.50-5.90 04/14/2016 7:pm 04/14/2016 7: 39pm Hemoglobin 15.3 GM/DL 13.5-17.5 04/14/2016 7:04/14/2016 7:39pm Hematocrit 46.1 % 41-53 04/14/2016 7:04/14/2016 7:39pm Mean Corpuscular Volume 86.0 UM3 80-100 04/14/2016 7:04/14/2016 7: 39pm Mean Corpuscular Hemoglobin 28.5 UUG 26-34 04/14/2016 7:2015 7:39pm Mean Corpuscular Hemoglobin Concent 33.2 GM/DL 31-37 04/14/2016 7:04/14/2016 7:39pm RDW Standard Deviation 44.7 FL 36.9-50.2 04/14/2016 7:04/14/2016 7 :39pm Platelet Count 189 T/MM3 130-400 04/14/2016 7:04/14/2016 7:39pm Mean Platelet Volume 12.1 UM3 9.4-12.4 04/14/2016 7:04/14/2016 7: 39pm Neutrophils (%) (Auto) 52.4 % 33-66 04/14/2016 7:04/14/2016 7: 39pm Lymphocytes (%) (Auto) 35.9 % 23-45 04/14/2016 7:04/14/2016 7: 39pm Monocytes (%) (Auto) 8.3 % 0-9.0 04/14/2016 7:04/14/2016 7:39pm Eosinophils (%) (Auto) 2.7 % 0-4 04/14/2016 7:04/14/2016 7:39pm Basophils (%) (Auto) 0.4 % 0-2 04/14/2016 7:04/14/2016 7:39pm Immature Granulocyte % (Auto) 0.3 % 0.0-0.5 04/14/2016 7:2015 7:39pm Absolute Neutrophils (auto) 5.8 T/MM3 1.8-7.7 04/14/2016 7:2015 7:39pm Absolute Lymphocytes (auto) 4.0 T/MM3 1-4.8 04/14/2016 7:2015 7:39pm Absolute Monocytes (auto) 0.9 T/MM3 H 0-0.8 04/14/2016 7:2015 7:39pm Absolute Eosinophils (auto) 0.3 T/MM3 0-0.5 04/14/2016 7:2015 7:39pm Absolute Basophils (auto) 0.0 T/MM3 0-0.2 04/14/2016 7:04/14/2016 7:39pm Absolute Immature Granulocyte (auto 0.03 T/MM3 0.00-0.03 04/14/2016 7: 04/14/2016 7:39pm D-Dimer 293 NG/ML H 0-230 04/14/2016 7:04/14/2016 9:41pm <230 NG/ ML D-DU=PRESUMPTIVE NEGATIVE FOR PE OR DVT >230 NG/ML D-DU=ADDITIONAL EVAL FOR PE OR DVT RECOMMENDED Icterus Index < 2 0-7 04/14/2016 7:04/14/2016 7:46pm Chemistry Specimen Hemolysis < 15 0-25 04/14/2016 7:04/14/2016 7 :46pm 0-25: Specimen Exhibited No Hemolysis. Turbidity < 20 0-20 04/14/2016 7:pm 04/14/2016 7:46pm Sodium Level 139 MEQ/L 134-144 04/14/2016 7:04/14/2016 7:46pm Potassium Level 4.3 MEQ/L 3.6-5 04/14/2016 7:04/14/2016 7:46pm Chloride Level 100 MEQ/L 98-107 04/14/2016 7:04/14/2016 7:46pm Carbon Dioxide Level 24 MEQ/L 22-30 04/14/2016 7:04/14/2016 7: 46pm Anion Gap 15 MEQ/L 5-15 04/14/2016 7:04/14/2016 7:46pm Blood Urea Nitrogen 23.0 MG/DL H 9-20 04/14/2016 7:04/14/2016 7: 46pm Creatinine 0.9 MG/DL 0.8-1.5 04/14/2016 7:04/14/2016 7:46pm BUN/Creatinine Ratio 26 RATIO 6-26 04/14/2016 7:04/14/2016 7:46pm Glomerular Filtration Rate Calc 82 04/14/2016 7:04/14/2016 7: 46pm Glucose Level 215 MG/DL H 75-110 04/14/2016 7:04/14/2016 7:46pm Calculated Osmolality 278 MOSM/KG 261-280 04/14/2016 7:04/14/2016 7:46pm Calcium Level 9.4 MG/DL 8.4-10.2 04/14/2016 7:04/14/2016 7:46pm Troponin I < 0.012 ng/ml 0-0.12 04/14/2016 7:04/14/2016 7:57pm Troponin values with a difference of 55% increase from orginal troponin value represent a true biological DELTA value. (%increase Calc=Orginal Troponin value, divided by subsequent Troponin value, multiplied by 100) Procedures Procedure Status Date Provider(s) CT HEAD/BRAIN W/O DYE Completed 04/14/16 CHEST X-RAY 1 VIEW FRONTAL Completed 04/14/16 CT ANGIOGRAPHY CHEST Completed 04/14/16 METABOLIC PANEL TOTAL CA Completed 04/14/16 ASSAY OF TROPONIN QUANT Completed 04/14/16 COMPLETE CBC W/AUTO DIFF WBC Completed 04/14/16 FIBRIN DEGRADATION QUANT Completed 04/14/16 ELECTROCARDIOGRAM TRACING Completed 04/14/16 HYDRATION IV INFUSION INIT Completed 04/14/16 EMERGENCY DEPT VISIT Completed 04/14/16 891109"INFUSION, NORMAL SALINE SOLUTION , 1000 CC" Completed 04/14/16 [id number]"INFUSION, NORMAL SALINE SOLUTION , 250 CC" Completed 04/14/16 [id number]"LOW OSMOLAR CONTRAST MATERIAL, 300-399 MG/ML IODINE C Completed Encounters Encounter Location Arrival/Admit Date Discharge/Depart Date Attending Provider Departed Emergency Room [facility] 05/26/16 12:52pm 05/26/16 2: 55pm MADELEINE DE LA CRUZ DO Registered Recurring [facility] 05/03/16 1:58pm RHONA ALVARENGA MD Departed Emergency Room [facility] 04/14/16 7:19pm 04/14/16 11: 50pm MADELEINE DE LA CRUZ DO Recent Diagnosis
--- OUTSIDE RECORDS SUMMARY | 2017-01-18 16:43 | XMS REPORT | Referral Summary ---
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 Discharge Diagnosis: Celiac disease Discharge Diagnosis: Diabetic peripheral neuropathy Discharge Diagnosis: Type 2 diabetes mellitus, controlled Discharge Disposition: 01-Home or Self Care Attending Physician: Melida Millan APRN Admitting Physician: Melida Millan APRN Vital Signs Most recent to 1 oldest [Reference Range]: Peripheral Pulse 80 bpm Rate [60-100 bpm] (09/29/16 10:53 AM) Blood Pressure 124/72 mmHg [90-140/60-90 mmHg] (09/29/16 10:53 AM) Problem List Condition Effective Dates Status Health [...] Active ed) Impaired skin Active integrity(Confirmed) 2 care home current Active use of insulin(Confirmed) Osteoporosis(Confirm Active patient ed) Diaphragmatic Active paralysis(Confirmed) [...] Thorazine Spansule Hives Active 1Celiac Disease Medications aspirin 325 mg oral tablet 325 mg 1 tabs, Oral, Daily, 0 Refill(s) Start Date: 11/09/15 Status: Ordered carvedilol 3.125 mg, Oral, BID, 0 Refill(s) Start Date: 12/07/15 Status: Ordered [...] Stop Date: 02/09/17 Status: Ordered Insulin Pin [place] (DME) DME Item Insulin pen needles 8mm use to inject insulin 5 times daily, See Instructions, # 3 boxes, 11 Refill(s), Pharmacy: [facility], Insulin pen needles 8mm; use to inject insulin 5 times daily, Supply Start Date: 05/24/16 Status: Ordered Levemir FlexTouch 100 units/mL subcutaneous solution See Instructions, INJECT 15 UNITS IN THE A.M., AND 17 UNITS IN THE P.M. SUB-Q DAILY, # 1 boxes, 3 Refill(s), CASANDRA, Pharmacy: [id number], INJECT 15 UNITS IN THE A.M., AND 17 UNITS IN THE P.M. SUB-Q DAILY Start Date: 09/07/16 Status: Ordered losartan 100 mg oral tablet 100 mg 1 tabs, Oral, Daily, # 30 tabs, 0 Refill(s) Start Date: 09/29/16 Status: Ordered metFORMIN 1000 mg oral tablet, extended release 1,000 mg 1 tabs, Oral, BID, # 120 tabs, 0 Refill(s) Start Date: 12/07/15 Status: Ordered Misc Medication See Instructions, Rubralam pc INj B12 1000mcg every 2nd week, 0 Refill(s) Start Date: 02/27/14 Status: Ordered Nasonex 50 mcg/inh nasal spray 2 sprays, Nasal, Daily, 0 Refill(s) Start Date: 03/08/15 Status: Ordered NovoLOG FlexPen 100 units/mL subcutaneous solution See Instructions, 10 units ac breakfast and lunch 15 units ac supper, # 3 boxes , 0 Refill(s), Pharmacy: [id number] Start Date: 09/08/16 Status: Ordered propranolol 10 mg oral tablet 10 mg 1 tabs, Oral, BID, 0 Refill(s) Start Date: 02/23/14 Status: Ordered Xanax 0.5 mg oral tablet 0.5 mg 1 tabs, Oral, TID, as needed for anxiety, 0 Refill(s) Start Date: 03/08/15 Status: Ordered Results No data available for this section Immunizations Given and Recorded Vaccine Date Status Refusal Reason pneumococcal 23-polyvalent vaccine 10/12/15 Given Procedures Procedure Date Related Diagnosis Body Site Esophagogastroduodenoscopy - SN1 06/26/16 Procedure with Anesthesia2 06/26/16 Repair Hernia Hiatal Laparoscopic3 10/11/15 Nasal/sinus endoscopy, surgical with frontal 02/09/15 [...] neck fusion 1auto-populated from documented surgical case 2auto-populated from documented surgical case 3auto-populated from documented surgical case Social History Social History Type Response Smoking Status Former smoker; Type: Cigarettes; Tobacco use per day: More than 1 pack; Number of years: 25; Total pack years: 100 Assessment and Plan Extracted from: Title: Office Visit Note Author: Melida Millan APRN Date: 09/29/16 Assessment/Plan 1.Type 2 diabetes mellitus, controlled 1.check blood sugars fasting and 2 hours after meals 3-7 days per week 2.use 10 units of novolog ac breakfast and lunch, continue other doses the same 3.same dose of metformin 4.rotate injection sites 5.monitor diet and exercise 6.monitor feet daily I discussed the patient with the preceptor. Ordered: Albumin/Creatinine Ratio, Urine Hemoglobin A1c Office Visit Level 4 Est 98252 Return to Clinic 2.care home current use of insulin Ordered: Albumin/Creatinine Ratio, Urine Hemoglobin A1c Office Visit Level 4 Est [id number] Return to Clinic 3.Celiac disease Ordered: Albumin/Creatinine Ratio, Urine Hemoglobin A1c Office Visit Level 4 Est [id number] Return to Clinic 4.Diabetic peripheral neuropathy Ordered: Albumin/Creatinine Ratio, Urine Hemoglobin A1c Office Visit Level 4 Est [id number] Return to Clinic Extracted from: Title: Ambulatory [...] sugar such as water. Be careful with [id number] medicines. Read the labels. They may contain [...] Released: 08/22/2004 Document Revised: 09/10/2015 Document Reviewed: Elsevier Interactive Patient Education 2015 [employer] No follow up information was provided. Referrals to Other Providers Referred by: Melida Millan APRN
--- OUTSIDE RECORDS SUMMARY | 2017-01-18 16:43 | XMS REPORT | Continuity of Care Document ---
Author Author [facility] Organization [facility] Address Unknown Phone Unavailable Support Name Relationship Address Phone JANUARY, MADELEINE Mckeon DO Caregiver [address] [place] [address] Unavailable EMILY VERA Caregiver [address] [place] [address] Unavailable DIDIERSYLVESTERUSAMA Next Of Kin [address], [place] [address] Insurance Providers Guarantor Jonh Velásquez Address [address] [place] [id number] Email DENIED/NO TO PT PORT Payer [employer] Medicare Supplement Policy Number [id number] Subscriber's Name Jonh Velásquez Relationship 18 Self Group Number [id number] Effective Date 14 Payer Medicare Policy Number [id number] Subscriber's Name Jonh Velásquez Relationship 18 Self Effective Date 02 Chief Complaint and Reason for Visit Chief Complaint Laceration Reason for Visit [id number] Problems Active Problems Medical Problem Onset Date [...] Daily 12/28/15 Azelastine Hcl 137 Mcg/0.137 Ml [place].pump 2 [place] Intranasal Twice A Day as needed for [...] Day 12/28/15 Mometasone Furoate (Nasonex) 17 Gm [place] 2 [place] Each Nostril Bedtime 02/17/11 Nitroglycerin (Nitrostat) 0.4 Mg Tablet 0.4 Mg Sublingual Every 5 Minutes as needed for Chest Tightness 07/11/15 Phenol (Chloraseptic) 20 Ml [place] 1 [place] Oral As Needed 09/17/15 Propranolol Hcl 10 [...] D3 1,000 Unit Tablet) 1 Each Tablet, 71067 Unit Oral Daily 08/31/14 Discontinued Ciprofloxacin Hcl [...] 05/04/10 Discontinued Mometasone Furoate (Nasonex) 17 Gm [place], 17 Gm Nasal As Needed 05/04/10 Discontinued [...] See Medication Section Referrals EMILY VERA Address: [address] [address] Additional Instructions/Education Have sutures removed [...] Not Given Reason Dose Number Lot Number Tattoo Identifier VIS Given Td (adult), adsorbed 05/26/16 Administered 1 [id number] [employer] 10/27/14 Query Response on File Recorded [...] - 99.1) 05/26/2016 12:55pm Temperature (Calculated Celsius) 36.70125 degrees C (36.0 - 37.3) 05/26/2016 12:55pm [...] mg/dL L 75-110 01/10/2016 3:19pm 02/09/2016 6:55am Procedures Procedure Status Date Provider(s) RPR S/N/AX/GEN/TRNK2.6-7.5CM Completed 05/26/16JanuaryMADELEINE DO IMMUNIZATION ADMIN Completed 05/26/16 TD VACC NO PRESV 7 YRS+ IM Completed 05/26/16 EMERGENCY DEPT VISIT Completed 05/26/16 Encounters Encounter Location Arrival/Admit Date Discharge/Depart Date Attending Provider Departed Emergency Room [facility] 05/26/16 12:52pm 05/26/16 2: 55pm JANUARYMADELEINE DO Discharged Recurring [facility] 05/03/16 1:58pm 08/03/16 11:59pm RHONA ALVARENGA MD Recent Diagnosis
--- OUTSIDE RECORDS SUMMARY | 2017-01-18 16:44 | XMS REPORT | Referral Summary ---
Author Author [facility] Organization [facility] Address Unknown Phone Unavailable Care Team Providers Care Research Project Manager Name Role Phone Mike Mendoza Primary Care Physician [phone] Encounter VC Date(s): 06/26/16 - 06/26/[address] [facility] [address] [place] [address] Discharge Disposition: 01-Home or Self Care Attending Physician: Krystina Ward MD Admitting Physician: Krystina Ward MD Vital Signs Most recent to 1 oldest [Reference Range]: Temperature Temporal 35.9 degC Artery [36.3-37.8 *LOW* degC] (06/26/16 10:10 AM) Apical Heart Rate 71 bpm [60-100 bpm] (06/26/16 8:57 AM) Heart Rate Monitored 72 bpm [60-100 bpm] (06/26/16 11:00 AM) Respiratory Rate 18 br/min [14-20 br/min] (06/26/16 11:00 AM) Blood Pressure 152/85 mmHg [90-140/60-90 mmHg] *HI* (06/26/16 11:00 AM) Mean Arterial 112 mmHg Pressure, Cuff (06/26/16 11:00 AM) SpO2 99 % (06/26/16 11:00 AM) Problem List Condition Effective Dates Status [...] Stop Date: 02/09/17 Status: Ordered Insulin [place] (DME) DME Item Insulin pen needles 8mm [...] Refill(s) Start Date: 03/08/15 Status: Ordered Results Chemistry Most recent to 1 oldest [Reference Range]: Blood Glucose, 159 mg/dL Capillary [70-100 *HI* mg/dL] (06/26/16 9:26 AM) Immunizations Vaccine Date Refusal Reason pneumococcal 23-polyvalent [...] Total pack years: 100 Assessment and Plan No data available for this section
--- OUTSIDE RECORDS SUMMARY | 2017-01-18 16:44 | XMS REPORT | Continuity of Care Document ---
Author Author [facility] Organization [facility] Address Unknown Phone Unavailable Support Name Relationship Address Phone EMILY VERA Caregiver [address] [place] [phone] ELISSA PARISH MD Caregiver [address] [place] [address] [place] [phone] DIDIER USAMA Next Of Kin [address] [place] [address] Insurance Providers Payer Name Policy Number Subscriber Name Relationship [facility] [id number] Jeanette Velásquez Kevin 01 Spouse Medicare [id number] Jonh Velásquez 18 Self Problems Medical Problems Problem Onset Date Status Sinusitis Unknown Active Sinusitis Unknown Active Medications Medication Dose Route Sig Days/Qty Instructions Order Date Discontinued Date Status Aspirin 325 Mg PO DAILY 05/04/10 Active Escitalopram Oxalate 5 Mg PO DAILY 05/04/10 02/16/11 Discontinued Digoxin 250 Mcg PO DAILY 05/04/10 Active Metformin Hcl 1,000 Mg PO TWICE A DAY 05/04/10 11/18/10 Discontinued Metoprolol Succinate 50 Mg PO DAILY 05/04/10 02/16/11 Discontinued Testosterone Cypionate 100 Mg IM EVERY 2 WEEKS 05/04/10 Active Insulin Glulisine Unknown Dose SQ NEEDED 05/04/10 Active Mometasone Furoate 17 Gm NS NEEDED 05/04/10 11/18/10 Discontinued Guaifenesin 600 Mg PO TWICE A DAY 11/18/10 Active Propranolol Hcl 10 Mg PO FOUR TIMES DAILY 02/16/11 Active Chlorpheniramine Maleate 4 Mg PO NEEDED 02/17/11 Active Sodium Chloride 45 Ml NS NEEDED 02/17/11 Active Mometasone Furoate 17 Gm NS NEEDED 02/17/11 Active Melatonin/Pyridoxine 1 Tab PO BEDTIME 02/17/11 Active Fish Oil/Collins-3 Fatty Acids 1,400 Mg PO DAILY 02/17/11 Active [Vitamin B 12 ] 1,000 Mcg INJ EVERY 2ND WK 08/31/14 Active Ca Cmb No.1/Vit D3/B-6/FA/B12 15,000 Unit PO DAILY 08/31/14 Active Alprazolam 0.5 Mg PO PRN ANXIETY 08/31/14 Active Calcium Citrate/Vitamin D3 3 DAILY 08/31/14 Active Lactobacillus Acidophilus 1 Tab PO DAILY 08/31/14 Active Insulin Detemir 20 Unit SQ TWICE A DAY 08/31/14 Active Ciprofloxacin HCl 250 Mg PO BEDTIME 08/31/14 Active Azithromycin 2 Tab PO DAILY 5 Days TAKE TWO TABLETS ON DAY ONE, 08/31/14 08/31/14 Discontinued Prednisone 60 Mg PO GIVE WITH BREAKFAST 3 Days 08/31/14 Active Azithromycin 2 Tab PO DAILY 5 Days 08/31/14 Active Social History Social History Problem Response Recorded Date/Time Hx Substance Use No 08/31/2014 12:11pm Hx Alcohol Use No 08/31/2014 12:11pm Query Response Start Date Stop Date Smoking Status Former smoker Hospital Discharge Instructions No hospital discharge instructions. Plan of Care No plan of care. Functional Status Query Response Date Recorded Physical Hygiene Self August 31, 2014 12:11pm Disabilities None August 31, 2014 12:11pm Devices Used Glasses August 31, 2014 12:11pm Dressing Self August 31, 2014 12:11pm Ambulation Self August 31, 2014 12:11pm Diet Self August 31, 2014 12:11pm Mental Status Alert August 31, 2014 1:44pm Disabilities None August 31, 2014 12:11pm Devices Used Glasses August 31, 2014 12:11pm Physical Hygiene Self August 31, 2014 12:11pm Dressing Self August 31, 2014 12:11pm Ambulation Self August 31, 2014 12:11pm Diet Self August 31, 2014 12:11pm Allergies, Adverse Reactions, Alerts Allergen Type Severity Reaction Status Last Updated Penicillin Allergy Severe RASH Active 02/16/11 Sulfa (Sulfonamide Antibiotics) Allergy Severe Active 02/16/11 Amoxicillin Allergy Severe RASH Active 02/16/11 Chlorpromazine Allergy Unknown Active 08/31/14 Immunizations Name Given Type Hx Influenza Vaccination Y 06/2014 Historical Hx Pneumococcal Vaccination Y 06/2011 Historical Hx Tetanus, Diptheria, Pertussis Yes Historical Hx Influenza Vaccination Y 06/2014 Historical Hx Tetanus, Diptheria, Pertussis Yes Historical Vital Signs Acute Vital Signs Vital Response Date/Time Temperature (Fahrenheit) 98.0 deg F (96.8 - 99.1) Temperature (Calculated Celsius) 36.12014 degrees C (36.0 - 37.3) Pulse Rate (adult) 85 bpm (60 - 100) Respiratory Rate 18 breaths/min (10 - 20) O2 Sat by Pulse Oximetry 93 % (90 - 100) Blood Pressure 128/75 mm Hg Height 5 ft 7 in Weight 187 lb Body Mass Index 29.0 kg/m^2 Results Test Source Date Result Interp. Ref. Range Comments Eosinophils # (Manual) August 31, 2014 11:35am 0.1 T/MM3 N 0-0.5 Monocytes # (Manual) August 31, 2014 11:35am 1.0 T/MM3 H 0-0.8 Lymphocytes # (Manual) August 31, 2014 11:35am 2.2 T/MM3 N 1-4.8 Neutrophils # (Manual) August 31, 2014 11:35am 4.3 T/MM3 N 1.8-7.7 Band Neutrophils # August 31, 2014 11:35am 0.2 T/MM3 - Eosinophils % (Manual) August 31, 2014 11:35am 1.0 % N 0-4 Monocytes % (Manual) August 31, 2014 11:35am 13.0 % H 0-9.0 Lymphocytes % (Manual) August 31, 2014 11:35am 28.0 % N 23-45 Band Neutrophils % August 31, 2014 11:35am 2.0 % N 0-6 Neutrophils % (Manual) August 31, 2014 11:35am 56.0 % N 33-66 Glucometer August 31, 2014 12:32pm 129 mg/dL H 75-110 Alanine Aminotransferase (ALT/SGPT) August 31, 2014 11:35am 33 U/L N 21-72 Albumin August 31, 2014 11:35am 4.0 G/DL N 3.5-5.0 Albumin/Globulin Ratio August 31, 2014 11:35am 1.5 RATIO N 1.1-2.2 Alkaline Phosphatase August 31, 2014 11:35am 64 U/L N 38-126 Anion Gap August 31, 2014 11:35am 10 MEQ/L N 5-15 Aspartate Amino Transf (AST/SGOT) August 31, 2014 11:35am 29 U/L N 17- 59 B-Type Natriuretic Peptide May 04, 2010 12:30pm 62 PG/ML N 15-100 BUN/Creatinine Ratio August 31, 2014 11:35am 15 RATIO N 6-26 Basophils # (Auto) May 04, 2010 12:30pm 0.1 T/MM3 N 0-0.2 Basophils (%) (Auto) May 04, 2010 12:30pm 0.6 % N 0-2 Blood Urea Nitrogen August 31, 2014 11:35am 18.0 MG/DL N 9-20 C-Reactive Protein August 31, 2014 11:35am 24.0 MG/L H 0-9 Calcium Level August 31, 2014 11:35am 8.4 MG/DL N 8.4-10.2 Calculated Osmolality August 31, 2014 11:35am 267 MOSM/KG N 261-280 Carbon Dioxide Level August 31, 2014 11:35am 30 MEQ/L N 22-30 Chemistry Specimen Hemolysis August 31, 2014 11:35am < 15 0-25 0-25 : No Hemolysis.26-70: Slight Hemolysis - can falsely elevate K and Urine Protein. 71-285: Moderate Hemolysis - can falsely elevate K, Troponin I, CA 19-9, PTH, CSF GLucose, and Urine Protein, and can falsely decrease Phenytoin. 286-999: Gross Hemolysis - can falsely elevate K, Troponin I, CA 19-9, PTH, CSF Glucose, and Urine Protine, and can falsely decrease Phenytoin. Recommend specimen recollection. Chloride Level August 31, 2014 11:35am 97 MEQ/L L 98-107 Creatinine August 31, 2014 11:35am 1.2 MG/DL N 0.8-1.5 Eosinophils # (Auto) May 04, 2010 12:30pm 0.3 T/MM3 N 0-0.5 Eosinophils (%) (Auto) May 04, 2010 12:30pm 2.9 % N 0-4 Globulin August 31, 2014 11:35am 2.6 G/DL N 2.4-3.6 Glomerular Filtration Rate Calc August 31, 2014 11:35am 59 - Glucose Level August 31, 2014 11:35am 125 MG/DL H 75-110 Hematocrit August 31, 2014 11:35am 49.8 % N 41-53 Hemoglobin August 31, 2014 11:35am 15.8 GM/DL N 13.5-17.5 Icterus Index August 31, 2014 11:35am < 2 0-7 Lymphocytes # (Auto) May 04, 2010 12:30pm 2.1 T/MM3 N 1-4.8 Lymphocytes (%) (Auto) May 04, 2010 12:30pm 23.5 % N 23-45 Mean Corpuscular Hemoglobin August 31, 2014 11:35am 21.7 UUG L 26-34 Mean Corpuscular Hemoglobin Concent August 31, 2014 11:35am 31.7 GM/DL N 31-37 Mean Corpuscular Volume August 31, 2014 11:35am 68.3 UM3 L 80-100 Mean Platelet Volume August 31, 2014 11:35am Not Performed 9.4-12.4 Monocytes # (Auto) May 04, 2010 12:30pm 0.9 T/MM3 H 0-0.8 Monocytes (%) (Auto) May 04, 2010 12:30pm 9.8 % H 0-9.0 Neutrophils # (Auto) May 04, 2010 12:30pm 5.6 T/MM3 N 1.8-7.7 Neutrophils (%) (Auto) May 04, 2010 12:30pm 63.2 % N 33-66 Platelet Count August 31, 2014 11:35am 194 T/MM3 N 130-400 Potassium Level August 31, 2014 11:35am 4.3 MEQ/L N 3.6-5 RDW Standard Deviation August 31, 2014 11:35am 49.7 FL N 36.9-50.2 Red Blood Count August 31, 2014 11:35am 7.29 M/MM3 H 4.50-5.90 Sodium Level August 31, 2014 11:35am 137 MEQ/L N 134-144 Thyroid Stimulating Hormone (TSH) May 04, 2010 12:30pm 1.30 MIU/ML N 0.47-4.68 Total Bilirubin August 31, 2014 11:35am 0.40 MG/DL N 0.20-1.30 Total Protein August 31, 2014 11:35am 6.6 G/DL N 6.3-8.2 Troponin I August 31, 2014 11:35am 0.050 ng/ml N 0-0.12 Turbidity August 31, 2014 11:35am < 20 0-20 Urine Bilirubin May 04, 2010 12:05pm Negative - Has specimen been collected/obtained? Y Urine Blood May 04, 2010 12:05pm Negative - Has specimen been collected/obtained? Y Urine Collection Type May 04, 2010 12:05pm Voided - Has specimen been collected/obtained? Y Urine Color May 04, 2010 12:05pm Yellow - Has specimen been collected/obtained? Y Urine Glucose (UA) May 04, 2010 12:05pm 1+ H - Has specimen been collected/obtained? Y Urine Ketones May 04, 2010 12:05pm Negative - Has specimen been collected/obtained? Y Urine Leukocyte Esterase May 04, 2010 12:05pm Negative - Has specimen been collected/obtained? Y Urine Microscopic Not Indicated May 04, 2010 12:05pm Not indicated - Has specimen been collected/obtained? Y Urine Nitrite May 04, 2010 12:05pm Negative - Has specimen been collected/obtained? Y Urine Protein May 04, 2010 12:05pm Negative - Has specimen been collected/obtained? Y Urine Specific [place] May 04, 2010 12:05pm 1.005 L - Has specimen been collected/obtained? Y Urine Turbidity May 04, 2010 12:05pm Clear - Has specimen been collected/obtained? Y Urine Urobilinogen May 04, 2010 12:05pm Normal EU/DL - Has specimen been collected/obtained? Y Urine pH May 04, 2010 12:05pm 6.0 - Has specimen been collected /obtained? Y White Blood Count August 31, 2014 11:35am 7.7 T/MM3 N 4.5-11.0 Name: JONH VELÁSQUEZ Unit #: [id number] : 1935 Sex: M Loc / Svc: ED DOS: 08/31/14 Signed Report #: [id number] DIAGNOSTIC IMAGING REPORT TYPE OF EXAM: CT HEAD W/O CONTRAST Dictated By: PHIL DOUGLAS MD INDICATION: ITS.REASON: Chronic sinusitis CT HEAD W/O CONTRAST: Comparison: None Technique: Axial CT images through the head were performed without contrast. FINDINGS: The ventricles are of normal size, shape, and contour for the patient's age. There are scattered areas of low attenuation in the white matter which most likely represent changes from chronic microvascular ischemia. The brainstem, cerebellum, and cerebral hemispheres otherwise have a normal morphology and CT attenuation. There is no evidence of midline displacement. No hemorrhage, signs of acute territorial stroke, mass effect, mass lesions, or edema is evident. The visualized portions of the skull base, midface, and calvarium demonstrate no abnormality. Mucosal thickening in both maxillary sinuses, left much greater than right with an acute air-fluid level in the left. The remaining paranasal sinuses are clear. The tympanic and mastoid cavities appear normal. IMPRESSION: No acute intracranial abnormality or hemorrhage. Acute left maxillary sinusitis. . Procedures No known history of procedures. Encounters Encounter Location Date/Time Registered Emergency Room [facility] 08/31/14 10:05am Recent Diagnosis
[2017-01-18] MEDS ORDERED: INSU100I3 SQ ×3 (17:18)
[2017-01-18 17:24] LABS: HCT - HEMATOCRIT 48.4 % (41-53); HGB - HEMOGLOBIN 15.7 GM/DL (13.5-17.5); MEAN CORPUSCULAR HGB 22.9 UUG (26-34); MEAN CORPUSCULAR HGB CONC(MCHC 32.4 GM/DL (31-37); MEAN CORPUSCULAR VOLUME 70.7 UM3 (80-100); MEAN PLATELET VOLUME 11.4 UM3 (9.4-12.4); RED BLOOD COUNT 6.85 M/MM3 (4.50-5.90); WBC - WHITE BLOOD COUNT 10.7 T/MM3 (4.5-11.0)
[2017-01-18 17:25] LABS: ANION GAP 14 MEQ/L (5-15); BUN/CREATININE RATIO 22 RATIO (6-26); CALCIUM 8.9 MG/DL (8.4-10.2); CHLORIDE 100 MEQ/L (98-107); CO2 - CARBON DIOXIDE 27 MEQ/L (22-30); GLOMERULAR FILTRATION RATE 72; GLUCOSE 118 MG/DL (75-110); POTASSIUM 4.7 MEQ/L (3.6-5); SODIUM 141 MEQ/L (134-144)
[2017-01-18] MEDS ORDERED: CYAN10006 INJ (17:27)
--- NOTE | 2017-01-18 17:29 | ERPDOC ---
Departure Disposition Decision Date: January 18, 2017 Disposition Decision Time: 18:16 Disposition: 07 AGAINST MEDICAL ADVICE Impression Impression Impression: Primary Impression: Tachycardia Additional Impression: Chest pain Chest pain type: unspecified Qualified Codes: R07.9 - Chest pain, unspecified Severity: Moderate Condition: Against Medical Advice Seen By: Mid-level only Referrals: EMILY VERA (Family) Problems/Meds/Labs Reviewed?: Yes Medications reviewed and manag: Yes Follow up care ordered?: Yes Mental Status: Alert HPI - Cardiac General Chief Complaint: Hypertension Stated Complaint: HIGH BP,HEADACHE, HIGH PULSE Time Seen by Provider: 17:14 Source: patient Exam Limitations: no limitations HPI - Cardiac General Initial Comments He was running errands today in [place]. Started to not feel well. Had onset of headache and he does have history of frequent headaches. He went home and went to his garage to get a manual. While there he really started not feeling well and was dizzy. He went back up to his house and took his blood pressure. Was 148 systolic. His pulse however was 191. He was dizzy, nauseated, and a little short of air. He did have pain all over. Took a nitro at home that did not really help anything. Blood pressure and pulse did not change. He took another nitro and then started to [place] [facility] [place] . His pulse did start to come down during the drive. Upon arrival to ER his pulse is in the low 100s and his symptoms are gone. He does have a history of tachycardia and takes Coreg for this BID. He does see Dr Harris. Last heart cath was in November of 2015 and he did have a bypassed vessel ballooned at that time. Occurred At: home Onset/Timing: Gradual Duration: 4-6 hrs Severity: moderate Location: other ("pain all over") Activities at Onset/Context: none Nitro Today/Relief: 0.4 mg x 2 Aspirin Today: unknown Associated Symptoms: chest pain, nausea/vomiting (nausea, no vomiting), DENIES : cough, diaphoresis, fever/chills, headaches, loss of appetite, malaise, rash, seizure, shortness of breath, syncope, weakness Hx of Similar Symptoms: No Allergies: Coded Allergies: Penicillins (Verified Allergy, Severe, RASH, 01/18/17) Sulfa (Sulfonamide Antibiotics) (Verified Allergy, Severe, RASH, 01/18/17) DR TOLD HIM NEVER TO TAKE IT AGAIN amoxicillin (Verified Allergy, Severe, RASH, 01/18/17) ALL "CILLINS" sulfamethoxazole (Verified Allergy, Severe, RASH, 01/18/17) trimethoprim (Verified Allergy, Severe, RASH, 01/18/17) amitriptyline (Verified Allergy, Unknown, 01/18/17) ampicillin (Verified Allergy, Unknown, 01/18/17) bacitracin (Verified Allergy, Unknown, 01/18/17) bupropion (Verified Allergy, Unknown, 01/18/17) ceftriaxone (Verified Allergy, Unknown, 01/18/17) chlorpromazine (Verified Allergy, Unknown, HIVES, 01/18/17) escitalopram (Verified Allergy, Unknown, 01/18/17) hydrocortisone (Verified Allergy, Unknown, 01/18/17) isosorbide (Verified Allergy, Unknown, 01/18/17) lansoprazole (Verified Allergy, Unknown, 01/18/17) lorazepam (Verified Allergy, Unknown, 01/18/17) neomycin (Verified Allergy, Unknown, 01/18/17) pantoprazole (Verified Allergy, Unknown, 01/18/17) polymyxin B (Verified Allergy, Unknown, 01/18/17) pravastatin (Verified Allergy, Unknown, 01/18/17) primidone (Verified Allergy, Unknown, 01/18/17) rosuvastatin (Verified Allergy, Unknown, 01/18/17) senna (Verified Allergy, Unknown, 01/18/17) sertraline (Verified Allergy, Unknown, 01/18/17) venlafaxine (Verified Allergy, Unknown, 01/18/17) Past History Past Medical History Metabolic: diabetes, hypertension, other ENMT: sinusitis Cardiac: A-fib, CAD Respiratory: pulmonary embolus GI: other Male: BPH Neurological: other Hematologic: other Psychological: anxiety, depression Surgical History General: back, hernia, neck, tonsils Cardiac: cardiac bypass Reproductive/: other Family History Family PMH: FOUND: CAD, DE, cancer, diabetes Vaccines Hx Influenza Vaccination: Yes (06/2015) Hx Pneumococcal Vaccination: Yes (2014) Hx Tetanus Diptheria: Yes (05/26/2016) Hx Tetanus, Diptheria, Pertuss: Yes Social History Sexuality: female partner Review of Systems Constitutional Constitutional: dizziness, DENIES: chills, fatigue, fever, weakness ENMT Ears: DENIES: drainage, pain Sinuses: DENIES: congestion, rhinorrhea Mouth/Throat: DENIES: painful swallowing, scratchy throat, sore throat Cardiovascular Cardiac: chest pain, DENIES: dyspnea on exertion Rhythm/Rate: palpitations, tachycardia, DENIES: irregular beat Pulmonary Respiratory: DENIES: cough, dyspnea, sputum, tachypnea GI Upper Abdomen: nausea, DENIES: pain, vomiting Lower Abdomen: DENIES: constipation, diarrhea, pain Integumentary Skin: DENIES: rash Neurological General: DENIES: headache, numbness, tingling, weakness Physical Exam General General Nourishment: well nourished, well developed, appears stated age, no acute distress, adult General Body Habitus: well groomed Vitals and Pain First Documented Vital Signs Date Time Temp Pulse Resp B/P Pulse Ox O2 Delivery O2 Flow Rate FiO2 01/18/17 16:43 98.1 104 20 141/90 94 Room Air Weight: Kilograms: 82.000 Height (feet): 5 Height (inches): 9.00 Triage Pain Scale: RN VS reviewed by Provider: Yes Normal Exams: Neck: Full range of motion, without adenopathy, JVD, bruits or thyromegaly Chest/Resp: Clear all ga[place], with good airflow, and symmetry bilaterally Abdomen: Bowel sounds positive, soft, non-tender, non-distended, no hepatosplenomegaly, masses or bruits noted Lymphatic: No lymphadenopathy, or lymphedema noted Integumentary: No rashes, hives, or bruising noted Neurologic: Patient is alert, and oriented Psychiatric: Patient exhibits, appropriate attention, emotion and affect Cardiovascular (brief) Cardiac: NOT FOUND: regular rate (tachycardia with rate of 102) Capillary Refill: <2 sec Pulses: all distal extremities, equal, strong Differential Diagnoses Considering: Acute DE, Atrial Fibrillation, PSVT, Ventricular Tachycardia Progress Results/Orders Orders Procedure Category Date Status Time EKG EKG 01/18/17 Logged Iv Lock (Ed Only) EDM 01/18/17 Transmitted 17:20 Chest 1 View RAD 01/18/17 Taken Cbc W/Auto LAB 01/18/17 Complete Diff-Reflex Manual Bmp - Basic Metabolic LAB 01/18/17 Complete Panel Troponin I W LAB 01/18/17 Complete Hemolysis Index Normal Saline (Normal PHA 01/18/17 In Process Saline Iv) 17:30 Place In Facility As: ADMIT 01/18/17 Transmitted Telemetry AWILDA 01/18/17 In Process 17:58 Lab Results Laboratory Tests Test 01/18/17 16:56 White Blood Count 10.7T/MM3 Red Blood Count 6.85M/MM3 Hemoglobin 15.7GM/DL Hematocrit 48.4% Mean Corpuscular Volume 70.7UM3 Mean Corpuscular Hemoglobin 22.9UUG Mean Corpuscular Hemoglobin Concent 32.4GM/DL RDW Standard Deviation 50.3FL Platelet Count 244T/MM3 Mean Platelet Volume 11.4UM3 Immature Granulocyte % (Auto) % Neutrophils (%) (Auto) % Lymphocytes (%) (Auto) % Monocytes (%) (Auto) % Eosinophils (%) (Auto) % Basophils (%) (Auto) % Absolute Immature Granulocyte (auto T/MM3 Absolute Neutrophils (auto) T/MM3 Absolute Lymphocytes (auto) T/MM3 Absolute Monocytes (auto) T/MM3 Absolute Eosinophils (auto) T/MM3 Absolute Basophils (auto) T/MM3 Neutrophils % (Manual) 52.0% Band Neutrophils % 2.0% Lymphocytes % (Manual) 32.0% Monocytes % (Manual) 12.0% Eosinophils % (Manual) 2.0% Absolute Neutrophils (Manual) 5.6T/MM3 Band Neutrophils # 0.2T/MM3 Lymphocytes # (Manual) 3.4T/MM3 Monocytes # (Manual) 1.3T/MM3 Eosinophils # (Manual) 0.2T/MM3 Anisocytosis 1+ Microcytosis 2+ Red Cell Morphology Comment Abnormal Turbidity < 20 Sodium Level 141MEQ/L Potassium Level 4.7MEQ/L Chloride Level 100MEQ/L Carbon Dioxide Level 27MEQ/L Anion Gap 14MEQ/L Blood Urea Nitrogen 22.0MG/DL Creatinine 1.0MG/DL Glomerular Filtration Rate Calc 72 BUN/Creatinine Ratio 22RATIO Glucose Level 118MG/DL Calculated Osmolality 275MOSM/KG Calcium Level 8.9MG/DL Icterus Index < 2 Troponin I < 0.012ng/ml Chemistry Specimen Hemolysis 22 Medications Current ED Medications Sodium Chloride (Normal Saline IV) 1,000 ml @ 500 mls/hr Q2H ONCE IV Last administered on 01/18/17t 17:50; Start 01/18/17 at 17:30; Stop 01/18/17 at 19:29 Progress Progress CBC, BMP, and troponin are all normal today. EKG shows sinus tachycardia. Given his cardiac history, diabetic status, and his history of symptoms today I did talk with Tawnya Sanchez APRN and she does agree to monitor him overnight by tele and serial troponins. He does however state that he does not want to stay. I did talk with him about the increased risk given his symptoms that he had and cannot fully rule out troponin given the short time span between his symptoms and ER visit. He is at high risk given his cardiac and diabetic history. He does understand all of this and does not want to be admitted. I did advise that he call Dr Harris's office for check up tomorrow. Strict return precautions were given. MABEL MANDEL APRN January 18, 2017 17:29
[2017-01-18 17:30] LABS: ANISOCYTOSIS 1+; BAND NEUTROPHILS # 0.2 T/MM3; EOSINOPHILS # (MANUAL) 0.2 T/MM3 (0-0.5); LYMPHOCYTES # (MANUAL) 3.4 T/MM3 (1-4.8); MONOCYTES # (MANUAL) 1.3 T/MM3 (0-0.8); NEUTROPHILS #(MANUAL)-ABSOLUTE 5.6 T/MM3 (1.8-7.7); TOTAL CELLS COUNTED 100 %
[2017-01-18] MEDS ORDERED: NORMAL SALINE 1,000 ML IV ONE (17:30)
[2017-01-18 17:31] LABS: MICROCYTOSIS 2+
[2017-01-18] MEDS ORDERED: DEXT38GE PO (17:31)
[2017-01-18] MEDS ORDERED: PSEU120T16 PO (17:31)
[2017-01-18] MEDS ORDERED: LOSA100T44 PO (17:31)
[2017-01-18] MEDS ORDERED: RANI150T7 PO (17:32)
--- OUTSIDE RECORDS SUMMARY | 2017-01-18 17:32 | XMS REPORT | Continuity of Care Document ---
Author Author [facility] Organization [facility] Address Unknown Phone Unavailable Allergies Active Description Code Type Severity Reaction Onset Reported/Identified Relationship to Patient Clinical Status Yes PCN Drug Allergy N/A N/A Yes SULFA Drug Allergy N/A N/A Yes penicillin NKMA N/A [id number] 02/23/2014 Yes penicillin NKMA N/A [id number] 02/23/2014 Yes Thorazine Spansule NKMA N/A [id number] 02/27/2014 Yes sulfamethoxazole NKMA N/A N/A 02/27/2014 Yes Thorazine Spansule NKMA N/A [id number] 02/27/2014 Yes sulfamethoxazole NKMA N/A [id number] 01/27/2015 Yes sulfamethoxazole NKMA N/A [id number] 01/27/2015 Yes Bactroban NKMA Severe rash 03/08/2015 Yes Bactroban NKMA Severe rash 03/08/2015 Yes Glutens 82296 N/A N/A 10/12/2015 Yes Glutens egg- containing [...] IV, q6hr, PRN: Nausea or Vomiting HYDROmorphone(HYDROmorphone DIRECTOR ENVIRONMENTAL 30 mg) 30 mL 10/11/20152015 IV 30 mg DIRECTOR ENVIRONMENTAL, IV, Stop: 12/10/15 19:49:00 CDT enoxaparin(Lovenox) 0.4 [...] MD Final I25.10 Atherosclerotic heart disease of [place] coronary artery without angina pect 10/19/2015 Moy Shah MD Final I65.22 Occlusion and stenosis of left carotid artery 10/19/2015 Moy Shah MD Final K44.9 Diaphragmatic hernia [...] MD Final I25.10 Atherosclerotic heart disease of [place] coronary artery without angina pect 11/01/2015 Moy [...] Final I10 Essential (primary) hypertension 07/02/2016 Yoselin aWrd Final I25.10 Atherosclerotic heart disease of [place] coronary artery without angina pect 07/02/2016 Yoselin [...] Dysphagia, unspecified 07/02/2016 Yoselin Ward Final 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 Visit Date/Time Discharge Status Pt. Type Provider Facility Loc./Unit Complaint [id number] 06/26/2016 07:42:00 2015 11:25:00 DIS Outpatient Yoselin Ward [facility] SPS GERD, dysphagia, Celiac disease [id number] 10/11/2015 12:08:00 2015 14:24:00 DIS Inpatient Moy Shah MD [facility]4CI Diaphragmatic hernia [id number] 09/24/2015 13:05:00 2015 23:59:00 DIS Outpatient Yoselin Ward [facility] Diag Rad DYSPHAGIA [id number] 09/30/2016 05:16:29 Document Registration [id number] 06/27/2016 05:18:12 Document Registration [id number] 05/25/2016 05:17:42 Document Registration [id number] 02/11/2016 05:16:43 Document Registration [id number] 12/08/2015 05:17:46 Document Registration [id number] 11/10/2015 05:15:50 Document Registration [id number] 10/16/2015 05:16:40 Document Registration [id number] 10/15/2015 05:16:05 Document Registration [id number] 10/14/2015 05:16:42 Document Registration [id number] 10/13/2015 05:17:35 Document Registration [id number] 10/12/2015 05:17:12 Document Registration [id number] 10/07/2015 09:15:00 ACT Outpatient Moy Shah MD [facility] Non-Invas r42 [id number] 06/23/2015 13:28:05 Document Registration [id number] 06/23/2015 12:58:31 Document Registration [id number] 06/23/2015 12:36:28 Document Registration [id number] 06/23/2015 12:29:14 Document Registration [id number] 06/23/2015 12:22:02 Document Registration [id number] 06/23/2015 12:08:10 Document Registration [id number] 06/23/2015 12:01:32 Document Registration [id number] 06/23/2015 11:02:19 Document Registration [id number] 06/23/2015 10:22:00 Document Registration [id number] 06/23/2015 09:04:20 Document Registration
--- OUTSIDE RECORDS SUMMARY | 2017-01-18 17:34 | XMS REPORT | Continuity of Care Document ---
Author Author [facility] Organization [facility] Address Unknown Phone Unavailable Support Name Relationship Address Phone EMILY VERA Caregiver [address] [place] [phone] ELISSA PARISH MD Caregiver [address] [place] [address] [place] [phone] DIDIER USAMA Next Of Kin [address] [place] [id number] Insurance Providers Payer Name Policy Number Subscriber Name Relationship [facility] [id number] Jeanette Velásquez Kevin 01 Spouse Medicare [id number] Jonh Velásquez 20 Self Problems Medical Problems [...] 1 Tab PO BEDTIME 02/17/11 Active Fish Oil/Maryneal-3 Fatty Acids 1,400 Mg PO DAILY 02/17/11 [...] F (96.8 - 99.1) Temperature (Calculated Celsius) 36.41316 degrees C (36.0 - 37.3) Pulse Rate [...] Has specimen been collected/obtained? Y Urine Specific [place] May 04, 2010 12:05pm 1.005 L - [...] N 4.5-11.0 Name: JONH VELÁSQUEZ Unit #: [id number] : 1935 Sex: M Loc / Svc: ED DOS: 08/31/14 Signed Report #: [id number] DIAGNOSTIC IMAGING REPORT TYPE OF EXAM: CT [...] Encounters Encounter Location Date/Time Registered Emergency Room [facility] 08/31/14 10:05am Recent Diagnosis
--- NOTE | 2017-01-18 18:04 | NUR ---
DELFINO VALDOVINOS IN WITH PT
[2017-01-18 18:40] VITALS: BP 145/82; PULSE 100; RESP 16; O2SAT 94
--- NOTE | 2017-01-18 18:40 | NUR ---
PT LEAVES AMA AFTER DELFINO VALDOVINOS EDUCATES PT ON THE BENEFITS OF BEING ADMITTED.
--- NOTE | 2017-01-19 09:48 | DI ---
Indication: ITS.REASON: chest pain PROCEDURE: CHEST 1 VIEW: Encounter: Initial Comparison: April 14, 2016 Findings: Left hemidiaphragm remains elevated. No new focal consolidation. Poor visualization of the left lung base. Right lung appears clear. No pneumothorax. Cardiac silhouette appears grossly stable. Prior sternotomy. Pulmonary vascularity is normal. Impression: Stable chest without acute cardiopulmonary disease. .
== END 2017-01-18 18:40 | disposition left against medical advice (07) ==
LOC: ED 16:37
DX: I10 Essential (primary) hypertension (principal); R00.0 Tachycardia, unspecified; R07.9 Chest pain, unspecified; R42 Dizziness and giddiness; R51 Headache; R11.0 Nausea; R06.02 Shortness of breath; I48.91 Unspecified atrial fibrillation; I25.10 Atherosclerotic heart disease of native coronary artery without angina pectoris; Z95.1 Presence of aortocoronary bypass graft; Z87.891 Personal history of nicotine dependence
CPT/HCPCS: 71010; 80048; 84484; 85025; 93005; 96360; 99284; J7030